=== PATIENT | female | born 1935 | race Two or more races ===

== ENCOUNTER 2018-08-15 10:17 | Outpatient (CLI) | payer OTHER ==
[~2018-08-15 10:17] MED LIST: FOSAMAX; NORVASC5 MG PO; SYNTHROID100 MCG PO
== END 2018-08-15 10:27 | disposition home or self-care (01) ==
LOC: RAD 501 10:17
DX: Z72.0 Tobacco use (principal); R04.2 Hemoptysis

== ENCOUNTER 2018-09-25 13:38 | Outpatient (CLI) | payer OTHER | END 2018-09-25 13:43 | disposition home or self-care (01) | LOC: TOM 13:38 | DX: Z72.0 Tobacco use (principal); R06.02 Shortness of breath ==

== ENCOUNTER 2018-09-30 10:21 | Outpatient (CLI) | payer OTHER | END 2018-09-30 10:38 | disposition home or self-care (01) | LOC: MAMO-SONO 10:21 | DX: Z12.31 Encounter for screening mammogram for malignant neoplasm of breast (principal); Z87.898 Personal history of other specified conditions; N60.11 Diffuse cystic mastopathy of right breast; N60.12 Diffuse cystic mastopathy of left breast ==

== ENCOUNTER 2019-11-05 09:49 | Emergency (ER) | payer OTHER ==
[~2019-11-05] VITALS: Ht 152.4 cm; Wt 40.4 kg
== END 2019-11-05 13:58 | disposition home or self-care (01) ==
LOC: ER 09:49
DX: J06.9 Acute upper respiratory infection, unspecified (principal)

== ENCOUNTER 2020-01-05 09:09 | Outpatient (CLI) | payer OTHER | END 2020-01-05 09:11 | disposition home or self-care (01) | LOC: RAD 09:09 | DX: J01.80 Other acute sinusitis (principal); J32.8 Other chronic sinusitis ==

== ENCOUNTER 2020-01-05 09:16 | Outpatient (CLI) | payer OTHER | END 2020-01-05 10:05 | disposition home or self-care (01) | LOC: NUCLEAR 09:16 | DX: I11.9 Hypertensive heart disease without heart failure (principal); I25.10 Atherosclerotic heart disease of native coronary artery without angina pectoris ==

== ENCOUNTER 2020-12-05 09:09 | Outpatient (CLI) | payer OTHER | END 2020-12-05 09:10 | disposition home or self-care (01) | LOC: PPH VACUNA 09:09 | PROVIDERS: ATTEND Emergency Medicine Pediatric Emergency Medicine | DX: Z23 Encounter for immunization (principal) ==

== ENCOUNTER 2021-04-24 09:37 | Outpatient (CLI) | payer OTHER | END 2021-04-24 09:44 | disposition home or self-care (01) | LOC: RAD 09:37 | PROVIDERS: ATTEND Internal Medicine | DX: M54.5 Low back pain (principal); I10 Essential (primary) hypertension; E55.9 Vitamin D deficiency, unspecified ==

== ENCOUNTER 2021-07-27 10:15 | Outpatient (CLI) | payer OTHER | END 2021-07-27 10:20 | disposition home or self-care (01) | LOC: PPH VACUNA 10:15 | PROVIDERS: ATTEND Emergency Medicine Pediatric Emergency Medicine | DX: Z23 Encounter for immunization (principal) ==

== ENCOUNTER 2022-05-17 11:42 | Emergency (ER) | payer OTHER ==
[~2022-05-17] VITALS: Ht 152.4 cm; Wt 40.8 kg
[2022-05-17] MEDS ORDERED: LUMIGAN2.5 M1 (12:39)
== END 2022-05-17 15:09 | disposition home or self-care (01) ==
LOC: ER 11:42
DX: M51.37 Other intervertebral disc degeneration, lumbosacral region (principal); I10 Essential (primary) hypertension; E03.9 Hypothyroidism, unspecified

== ENCOUNTER 2022-07-20 13:13 | Outpatient (CLI) | payer OTHER ==
[~2022-07-20 13:13] MED LIST changes: +LUMIGAN2.5 M1
== END 2022-07-20 13:22 | disposition home or self-care (01) ==
LOC: MRI 13:13
PROVIDERS: ATTEND Anesthesiology
DX: M54.50 Low back pain, unspecified (principal); S32.002A Unstable burst fracture of unspecified lumbar vertebra, initial encounter for closed fracture
CPT/HCPCS: 72148

== ENCOUNTER 2023-01-14 14:18 | Outpatient (CLI) | payer OTHER | END 2023-01-14 14:29 | disposition home or self-care (01) | LOC: MRI 14:18 | PROVIDERS: ATTEND Anesthesiology | DX: M54.59 Other low back pain (principal) | CPT/HCPCS: 72148 ==

== ENCOUNTER 2023-07-31 09:50 | Outpatient (CLI) | payer OTHER | END 2023-07-31 09:55 | disposition home or self-care (01) | LOC: NUCLEAR 09:50 | PROVIDERS: ATTEND Internal Medicine | DX: R53.1 Weakness (principal); I10 Essential (primary) hypertension ==

== ENCOUNTER 2023-11-20 10:04 | Outpatient (CLI) | payer OTHER | END 2023-11-20 10:12 | disposition home or self-care (01) | LOC: TOM 10:04 | PROVIDERS: ATTEND Internal Medicine | DX: R06.2 Wheezing (principal); R63.4 Abnormal weight loss ==

== ENCOUNTER 2024-11-20 13:59 | Outpatient (CLI) | payer OTHER | END 2024-11-20 14:04 | disposition home or self-care (01) | LOC: TOM 13:59 | PROVIDERS: ATTEND Internal Medicine Pulmonary Disease | DX: R91.8 Other nonspecific abnormal finding of lung field (principal) ==

== ENCOUNTER → 2025-03-16 | Outpatient (CLI) | payer OTHER | END | disposition home or self-care (01) | LOC: NUCLEAR 08:56 | PROVIDERS: ATTEND Internal Medicine | DX: I73.9 Peripheral vascular disease, unspecified (principal); I87.2 Venous insufficiency (chronic) (peripheral) ==

== ENCOUNTER 2025-03-17 07:43 | Outpatient (CLI) | payer OTHER | END 2025-03-17 07:44 | disposition home or self-care (01) | LOC: NUCLEAR 07:43 | PROVIDERS: ATTEND Internal Medicine | DX: I73.9 Peripheral vascular disease, unspecified (principal) ==